=== PATIENT | female | born 1950 | race Caucasian/White ===

== ENCOUNTER → 2019-12-04 | Outpatient (CLI) | payer MEDICARE, BC ==
--- NOTE | 2019-12-04 16:32 | US ---
EXAMINATION TYPE: US thyroid st tissue head/neck DATE OF EXAM: 12/04/2019 COMPARISON: NONE CLINICAL HISTORY: E03.9 Hypothyroidism. Takes tyroid medication. GLAND SIZE: Right Lobe: 4.1 x 0.9 x 0.9 cm Overall Parenchyma: homogenous Left Lobe: 4.4 x 1.2 x 0.8 cm Overall Parenchyma: homogeneous Isthmus Thickness: 0.2 cm NODULES RIGHT: # of nodules measured on right: 0 LEFT: # of nodules measured on left: 1 1. 0.5 X 0.4 x 0.3 cm hypoechoic solid nodule at the lower pole with well-defined margins. This no dule is wider than tall and shows no intranodular vascularity. ISTHMUS: # of nodules measured in the isthmus: 0 Bilateral neck scanned: inferior to left lower pole is hyperechoic lymph node = 1.0 x 0.5 x 0.4cm. IMPRESSION: Subcentimeter left thyroid nodule. Shotty adenopathy within the left neck.
== END | disposition home or self-care (01) ==
LOC: RADUSWWP 15:29
PROVIDERS: ATTEND Family Medicine
DX: E04.1 Nontoxic single thyroid nodule (principal); R59.0 Localized enlarged lymph nodes; E03.9 Hypothyroidism, unspecified
CPT/HCPCS: 76536

== ENCOUNTER → 2020-02-29 | Outpatient (CLI) | payer MEDICARE, BC ==
--- NOTE | 2020-02-29 10:45 | US ---
EXAMINATION TYPE: US thyroid st tissue head/neck DATE OF EXAM: 02/29/2020 COMPARISON: 12/04/2019 CLINICAL HISTORY: 69-year-old female E07.9 Thyroid lobe. TECHNIQUE: Multiple sonographic images of the thyroid gland are obtained. FINDINGS: GLAND SIZE: Right Lobe: 4.1 x 0.8 x 0.9 cm Overall Parenchyma: homogenous Left Lobe: 4.3 x 1.6 x 0.7 cm Overall Parenchyma: homogeneous Isthmus Thickness: 0.2 cm NODULES RIGHT: # of nodules measured on right: 0 LEFT: # of nodules measured on left: 1 1. 0.6 X 0.5 x 0.3 cm hypoechoic nodule, which is wider than tall, with smooth margins, without ech ogenic foci. Located at the mid to lower pole. Prior size: 0.5 x 0.4 x 0.3 cm ISTHMUS: # of nodules measured in the isthmus: 0 Bilateral neck scanned: Prominent but nonenlarged lymph node seen inferior to left lobe = 1.0 x 0.5 x 0.4cm. This shows large fatty hilum with thin uniform cortex. IMPRESSION: Solitary solid nodule at the left mid to lower pole measures 6 x 5 mm versus 5 x 4 mm, previously. Ad ditional follow-up can be performed.
== END | disposition home or self-care (01) ==
LOC: RADUSWWP 09:37
PROVIDERS: ATTEND Otolaryngology
DX: E04.1 Nontoxic single thyroid nodule (principal)
CPT/HCPCS: 76536

== ENCOUNTER 2020-08-24 11:07 | Inpatient (IN) | payer MEDICARE, BC ==
[2020-08-25] MEDS ORDERED: NA PHOS,M-B/NA PHOS,DI-BA 133 ML ENEMA RECTAL PRN (14:38)
[2020-08-25] MEDS ORDERED: HYDROmorphone 0.5 MG/0.5 ML SYRINGE IVP PRN ×2 (14:38)
[2020-08-25] MEDS ORDERED: ACETAMINOPHEN TAB 325 MG TAB PO PRN (14:38)
[2020-08-25] MEDS ORDERED: TEMAZEPAM 15 MG CAP PO PRN (14:38)
[2020-08-25] MEDS ORDERED: diazePAM 5 MG TAB PO PRN (14:38)
[2020-08-25] MEDS ORDERED: bisacodyL 10 MG SUPP RECTAL PRN (14:38)
[2020-08-25] MEDS ORDERED: HYDROcodone/APAP 5-325MG 1 EACH TAB PO PRN (14:38)
[2020-08-25] MEDS ORDERED: ONDANSETRON 4 MG/2 ML VIAL IVP PRN (14:38)
[2020-08-25] MEDS ORDERED: Acetaminophen-Codeine 300-30mg TAB PO PRN (14:38)
[2020-08-25] MEDS ORDERED: NALOXONE 0.4 MG/ML 1 ML VIAL IV PRN (14:38)
[2020-08-25] MEDS ORDERED: MAGNESIUM HYDROXIDE 2,400 MG/10 ML CUP PO PRN (14:38)
[2020-08-25] MEDS ORDERED: HYDROmorphone 0.2 MG/1 ML SYRINGE IVP PRN (14:38)
[2020-08-25] MEDS: SODIUM CHLORIDE 0.9% 1,000 ML IV SCH (16:01)
[2020-08-25] MEDS: SENNOSIDES-DOCUSATE SODIUM 1 EACH TAB PO SCH (21:37)
[2020-08-25] MEDS: ALPRAZolam 0.25 MG TAB PO PRN (23:38)
[2020-08-26] MEDS: SODIUM CHLORIDE 0.9% 1,000 ML IV SCH ×3 (03:58→20:58)
[2020-08-26 07:23] LABS: Basophils % (A) 1 %; Eosinophils # (A) 0.1 k/uL (0-0.7); Eosinophils % (A) 2 %; HCT 35.8 % (34.0-46.0); HGB 12.2 gm/dL (11.4-16.0); Lymphocytes # (A) 1.1 k/uL (1.0-4.8); Lymphocytes % (A) 23 %; MCH 30.5 pg (25.0-35.0); MCV 89.7 fL (80.0-100.0); Mean Platelet Volume 7.2; Monocytes # (A) 0.3 k/uL (0-1.0); Monocytes % (A) 5 %; Neutrophils # (A) 3.2 k/uL (1.3-7.7); Neutrophils % (A) 68 %; Platelet Count 337 k/uL (150-450); RBC 3.99 m/uL (3.80-5.40); RDW 12.5 % (11.5-15.5); WBC 4.8 k/uL (3.8-10.6)
[2020-08-26] MEDS ORDERED: ALPRAZolam 0.25 MG TAB PO STA (08:01)
[2020-08-26] MEDS: THYROID, PORK 30 MG TAB PO SCH (08:41)
[2020-08-26] MEDS: MULTIVITAMINS, THERA 1 EACH TAB PO SCH (11:36)
[2020-08-26] MEDS ORDERED: LACTATED RINGERS 1,000 ML IV ONE ×2 (13:11→16:10)
[2020-08-26] MEDS ORDERED: ONDANSETRON 4 MG/2 ML VIAL IVP ONE (13:16)
[2020-08-26] MEDS ORDERED: MIDAZOLAM 2 MG/2 ML VIAL IVP ONE (13:32)
[2020-08-26] MEDS ORDERED: fentaNYL (PF) 50 MCG/ML 2 ML AMP IVP ONE ×2 (13:33→13:37)
--- NOTE | 2020-08-26 13:49 | P.ANPRN ---
Procedure Note - Anesthesia - Nerve Block Performed Right Adductor Canal Single Time Out Performed: Yes Date of Procedure: 08/26/20 Procedure Start Time: 13:31 Procedure Stop Time: 13:36 Location of Patient: PreOp Indication: Requested by Surgeon Specifically requested for management of pain by DrJohn: Kevin Rome Sedation Type: Sedate with meaningful contact maintained Preparation: Sterile Prep Position: Supine Needle Types: Pajunk Needle Gauge: 21 Ultrasound used to visualize needle placement: Yes Ultrasound used to observe medication spread: Yes Injectate: 0.5% Ropivacaine (see comment for volume) (20 ml plus 4 mg Dexamethasone) Blood Aspirated: No Pain Paresthesia on Injection Noted: No Resistance on Injection: Normal Image Stored and Saved: Yes Events: Uneventful and Well Tolerated
--- NOTE | 2020-08-26 13:51 | P.ANPRN ---
Procedure Note - Anesthesia - Nerve Block Performed Right Popliteal Single Time Out Performed: Yes Date of Procedure: 08/26/20 Procedure Start Time: 13:37 Procedure Stop Time: 13:43 Location of Patient: PreOp Indication: Requested by Surgeon ([email or web address]) Specifically requested for management of pain by Dr.: Kevin Rome Sedation Type: Sedate with meaningful contact maintained Preparation: Sterile Prep Position: Left Lateral Needle Types: Pajunk Needle Gauge: 21 Ultrasound used to visualize needle placement: Yes Ultrasound used to observe medication spread: Yes Injectate: 0.5% Ropivacaine (see comment for volume) (20 ml plus 4 mg Dexamethasone) Blood Aspirated: No Pain Paresthesia on Injection Noted: No Resistance on Injection: Normal Image Stored and Saved: Yes Events: Uneventful and Well Tolerated
[2020-08-26] MEDS ORDERED: HYDROmorphone (PF) 1 MG/ML ONE (14:06)
[2020-08-26] MEDS ORDERED: SUCCINYLCHOLINE CHLORIDE 100 MG/5 ML SYR IV ONE (14:06)
[2020-08-26] MEDS ORDERED: PROPOFOL 10 MG/ML 20 ML VIAL IV ONE (14:06)
[2020-08-26] MEDS ORDERED: LIDOCAINE 1% INJ 10MG/ML (20 ML MDV) ONE (14:06)
[2020-08-26] MEDS ORDERED: fentaNYL (PF) 50 MCG/ML 2 ML AMP ONE (14:06)
[2020-08-26] MEDS ORDERED: MIDAZOLAM 2 MG/2 ML VIAL ONE (14:06)
[2020-08-26] MEDS ORDERED: ROPIVACAINE 5 MG/ML 30 ML VIAL ONE (14:06)
[2020-08-26] MEDS ORDERED: DEXAMETHASONE SOD PHOSPHATE 4 MG/ML 1 ML VIAL ONE (14:06)
[2020-08-26] MEDS ORDERED: SODIUM CHLORIDE 0.9% 100 ML with ceFAZolin 2,000 MG IV ONE ×2 (14:11)
[2020-08-26] MEDS ORDERED: CLOTRIMAZOLE/BETAMETH 1-0.05% CREAM 45 GM TUBE TOPICAL PRN (16:19)
[2020-08-26] MEDS ORDERED: NON FORMULARY DRUG (Pimecrolimus [Pimecrolimus] 30 GM Cream..G.) TOPICAL PRN (16:19)
[2020-08-26] MEDS ORDERED: BETAMETHASONE DIPROPIONATE 0.05% OINTMENT 45 GM TUBE TOPICAL PRN (16:19)
[2020-08-26] MEDS ORDERED: NYSTATIN 100,000UNIT/GM CREAM 30 GM TUBE TOPICAL PRN (16:19)
[2020-08-26] MEDS ORDERED: IPRATROPIUM BROMIDE 0.06% NASAL SPRAY (15 ML) EA NOSTRIL PRN (16:19)
[2020-08-26] MEDS ORDERED: CLOTRIMAZOLE 1% CREAM 30 GM TUBE TOPICAL PRN (16:19)
[2020-08-26] MEDS ORDERED: TRIAMCINOLONE 0.1% CREAM 80 GM TUBE TOPICAL PRN (16:19)
--- NOTE | 2020-08-26 16:21 | FL ---
Fluoroscopy HISTORY: Pain ankle fracture 61 seconds fluoroscopy time supplied to the referring clinician. 2 intraoperative C-arm images docum ent the procedure. See dictated report from orthopedic surgery.
--- NOTE | 2020-08-26 16:38 | P.CONS ---
History of Present Illness - Reason for Consult Consult date: 08/26/20 - Chief Complaint medical management - History of Present Illness 69 year old woman with history of HLD, hypothyroidism, anxiety/depression, CKD III presented for elective ORIF of b/l malleolar ankle fractures. Medicine consulted by ortho for med management. Preoperative clearance obtained from patient's PCP. Patient has no active complaints at this time outside of several chronic medical issues. She reports anxiety this morning and would like her xanax. She also reports rash on her chest. Otherwise denies chest pain, palps, f/c, n/v/c/d, abd pain, cough, dyspnea, numbness/weakness. Review of Systems All Systems reviewed and pertinent positives and negatives noted in HPI, all other symptoms are negative Past Medical History Past Medical History: Cancer, Eye Disorder, GERD/Reflux, Hyperlipidemia, Skin Disorder, Thyroid Disorder Additional Past Medical History / Comment(s): fell down 3 steps 08/13/20 fx both ankles-has boots on both feet and has burn rash on rt arm,currently on bedrest, hx migraines, "heart valve leak", hiatal hernia, osteopenia, stage III kidney disease, thyroid nodule, melanoma rt ear, rash on chest, narrow angle glaucoma History of Any Multi-Drug Resistant Organisms: None Reported Past Surgical History: Ear Surgery, Hysterectomy, Tonsillectomy Additional Past Surgical History / Comment(s): rt ear reconstruction after melanoma removed, rosalia cataracts, lesion removed from base on tongue, laser eye surgery, mult breast biopsies, right tonsil taking out Past Anesthesia/Blood Transfusion Reactions: No Reported Reaction Additional Past Anesthesia/Blood Transfusion Reaction / Comm: claustrophobia Past Psychological History: Anxiety, Depression Additional Psychological History / Comment(s): claustrophobia, past depressions Smoking Status: Former smoker Past Alcohol Use History: None Reported Additional Past Alcohol Use History / Comment(s): quit smoking 10 yrs ago, smoked since age late teens Past Drug Use History: None Reported - Past Family History Father Family Medical History: Cancer Additional Family Medical History / Comment(s): colon Medications and Allergies Home Medications Medication Instructions Recorded Confirmed Type ALPRAZolam [Xanax] 0.375 - 0.5 mg PO DAILY PRN 08/18/20 08/25/20 History Aspirin EC [Ecotrin Low Dose] 81 mg PO DAILY 08/18/20 08/25/20 History Atorvastatin Calcium [Lipitor] 10 mg PO Q48H 08/18/20 08/25/20 History Atorvastatin [Lipitor] 20 mg PO Q48H 08/18/20 08/25/20 History Betamethasone Dipropionate 1 applic TOPICAL DAILY PRN 08/18/20 08/25/20 History [Betamethasone Dipropionate 0.05%] Biotin Tab 2,000 mg PO DAILY 08/18/20 08/25/20 History Cholecalciferol [Vitamin D3 (25 25 mcg PO SUMOTUWE 08/18/20 08/25/20 History Mcg = 1000 Iu)] Citalopram Hydrobromide [CeleXA] 15 mg PO DAILY 08/18/20 08/25/20 History Citrucel Tablet 1 tab PO DAILY 08/18/20 08/25/20 History Clotrimazole Cream [Lotrimin Cream] 1 applic TOPICAL DAILY PRN 08/18/20 08/25/20 History Clotrimazole/Betameth Cream 1 applic TOPICAL DAILY PRN 08/18/20 08/25/20 History [Lotrisone] Escitalopram [Lexapro] 5 mg PO DAILY 08/18/20 08/25/20 History Escitalopram [Lexapro] 10 mg PO DAILY 08/18/20 08/25/20 History Magnesium Oxide [Mag-Ox] 400 mg PO Q48H 08/18/20 08/25/20 History Pimecrolimus 1 applic TOPICAL BID PRN 08/18/20 08/25/20 History Thyroid, Pork [Milton Thyroid] 30 mg PO Q48H 08/18/20 08/25/20 History Thyroid,Pork [Milton Thyroid] 45 mg PO Q48H 08/18/20 08/25/20 History Thyroid,Pork [Milton Thyroid] 90 mg PO TU 08/18/20 08/25/20 History Vitamin B Complex 1 cap PO DAILY 08/18/20 08/25/20 History buPROPion HCL [buPROPion HCL SR] 150 mg PO DAILY 08/18/20 08/25/20 History calcitrioL [Calcitriol] 0.25 mcg PO SENA 08/18/20 08/25/20 History Acyclovir 5% Oint [Zovirax Oint] 1 applic TOPICAL QID 08/24/20 08/25/20 History Chlorhexidine Gluconate [Peridex] 15 ml PO BID PRN 08/24/20 08/25/20 History Cn-U Fungal Nail Removal Gel 1 dose TOPICAL MOTUWETH 08/24/20 08/25/20 History Ipratropium Badger 0.06%Nasal 2 spray EA NOSTRIL TID PRN 08/24/20 08/25/20 History [Atrovent Nasal 0.06%] Nystatin 100,000Unit/gm Cream 1 applic TOPICAL DAILY PRN 08/25/20 08/25/20 History [Mycostatin Cream] Triamcinolone 0.1% Cream [Kenalog 1 applicatio TOPICAL DAILY PRN 08/25/20 08/25/20 History 0.1% Cream] Allergies Allergy/AdvReac Type Severity Reaction Status Date / Time adhesive Allergy blisters Verified 08/25/20 13:30 skin and rips skin amoxicillin Allergy Rash/Hives Verified 08/25/20 13:30 diphenhydramine Allergy Rash/Hives Verified 08/25/20 13:30 [From Benadryl] Iodinated Contrast Media Allergy told not Verified 08/25/20 13:30 to take by her Penicillins Allergy Rash/Hives Verified 08/25/20 13:30 bandaid glue Allergy Rash/Hives Uncoded 08/18/20 10:15 steroids Allergy Rash/Hives Uncoded 08/18/20 10:15 Physical Exam Osteopathic Statement: *. No significant issues noted on an osteopathic structural exam other than those noted in the History and Physical/Consult. Vitals: Vital Signs Temp Pulse Resp BP Pulse Ox 08/26/20 13:46 78 18 121/65 98 08/26/20 13:10 97.8 F 78 18 135/71 98 08/26/20 08:00 20 08/26/20 07:27 97.8 F 81 20 115/74 95 08/26/20 01:38 98.2 F 65 18 102/59 94 L 08/26/20 01:30 97.6 F 83 16 121/72 95 08/25/20 20:30 98.4 F 69 16 129/49 93 L Intake and Output 08/26/20 08/26/20 08/26/20 06:59 14:59 22:59 Intake Total 1100 Balance 1100 Intake: IV 1100 Other: # Voids 2 2 Gen: awake, alert HEENT: normocephalic, atraumatic, good hearing acuity, moist mucous membranes Resp: good air exchange, breathing comfortably with no accessory muscle use CVS: good distal perfusion x 4, GI: soft, NTTP, ND : no SPT, no CVAT, suarez catheter not present MSK: no pitting edema, no clubbing Neuro: non-focal, moving all extremities Psych: cooperative, euthymic mood Results CBC & Chem 7: 08/26/20 06:50 Assessment and Plan Assessment: Hyperlipidemia Mood disorder Rash Hypothyroidism CKD stage III Plan Patient's medication reconciliation was completed from the medical perspective. Chronic medical conditions are all stable. We will continue to monitor the patient daily and follow along with you. Recommend CBC, BMP, magnesium tomorrow morning to follow blood count and kidney function after operation
--- NOTE | 2020-08-26 16:55 | P.OP ---
Date of Procedure: 08/26/20 Preoperative Diagnosis: 1. Displaced lateral malleolar fracture right ankle 2. Displaced fracture weightbearing surface of right distal tibia. 3. Ruptured syndesmosis right ankle Postoperative Diagnosis: 1. Displaced right lateral malleolar fracture 2. Displaced fracture weightbearing surface right distal tibia Procedure(s) Performed: 1. Open reduction with internal fixation of fracture of weightbearing surface of right distal tibia 2. Open reduction with internal fixation of displaced right lateral malleolar fracture Implants: Company: [employer] Posterior lateral fibula plate Posterior lateral tibial plate 3.5 mm locking and nonlocking screws 2.7 mm locking screws Anesthesia: CHARLAA Surgeon: Kevin Rome Estimated Blood Loss (ml): 25 Pathology: none sent Condition: stable Disposition: PACU Indications for Procedure: Patient suffered a fall on stairs that resulted in a displaced fracture of the lateral malleolus and posterior malleolus of the right tibia. Was evidence of medial joint space widening on initial x-rays. Due to the instability of the fracture surgery was recommended Operative Findings: The posterior tibia and lateral malleolar fractures reduced well with fixation. Once the fractures were fixated stress on the ankle revealed that there was no disruption of the syndesmosis therefore fixation was not needed Description of Procedure: Prior to the patient being brought to the operating room anesthesia administered nerve block on the right lower extremity utilizing ultrasonic guidance and mild sedation. The patient was then brought into the operating room. Timeout was taken to confirm correct patient identifiers, correct procedure, and correct site of surgery. When the room was in agreement the patient was induced and placed under general anesthetic. The patient was then rolled onto the operating room table in the prone position. Once positioning was satisfactory to anesthesia, well-padded tourniquet was placed on the right thigh. Then the right leg was prepped and draped in the usual manner. The right leg was exsanguinated the knee flexed and the tourniquet inflated to 250 mmHg. Joint was directed to the posterior lateral aspect of the right ankle where an incision was made between the Achilles tendon and peroneal tendons. The incision was deepened down to the subcutaneous layer careful to identify, avoid, and retract any neurovascular structures and cauterize any bleeding vessels. Blunt dissection was performed until the fascia overlying the flexor hallucis longus muscle belly and the peroneal tendon muscle bellies was ordered. The natural division between the 2 muscle structures was utilized as another point of dissection with the muscles are and then retracted medially and laterally to expose the posterior surface of the tibia. Further dissection was done with the peroneal tendons where there were reflected off the posterior aspect of the lateral malleolus and a full-thickness layer and retracted. Under fluoroscopic visualization the lateral view of the ankle showed that the posterior malleolar fracture was nearly anatomically reduced compared to preoperative x-rays. Direct visualization and the posterior aspect of the tibia did not reveal a step-off or an obvious fracture line. Hurricane elevator was used to find the outline of the fracture in the area palpated and it appeared that there was complete normal contour the fracture line. The clamp was used to reduce the fracture and then a posterior lateral plate was placed over the fracture along the long axis of the tibia. And then temporarily fixated and checked under fluoroscopy for positioning. Once position was satisfactory a nonlocking screw was placed in the proximal holes of the plate or to the fracture and then tightened until the plate was well contoured to the posterior aspect of the tibia which also aided a repeat keeping the fracture reduced. The clamp was removed and then 2 locking screws were placed in the most distal holes and there were angulated away to avoid the articular surface of the ankle. The last was another nonlocking screw in the proximal holes once all screws were placed fluoroscopic imaging showed that the posterior malleolar fracture was completely reduced and all the screws were properly placed. Then attention was directed to the lateral malleolus with the fracture line was identified and then bone clamps were used to bring the fibula back out to length and then stabilize it in place. A posterior lateral plate was then positioned on the fibula and then temporarily fixated. Fluoroscopy was used to make sure that the plate was well aligned both on AP and lateral views. Once that was satisfactory was temporarily fixated. Fluoroscopy was used to make sure that was in its final position. The drill guide was affixed to the distal part of the plate the drill holes made from posterior to anterior in the distal aspect lateral malleolus. Direct fluoroscopic visualization was utilized to complete the drilling as well as confirmed proper measurements. 2.7 locking screws were inserted into the distal drill holes. The drill hole in the proximal screw which was also superior to the fracture was made and a 3.5 mm nonlocking screw was inserted and tightened to bring the plate against the bone and 8 and fracture reduction. Fluoroscopic imaging showed that the fracture was near anatomic alignment with proper placement of the plate. 2 additional 3.5 mm nonlocking screws were inserted into the fibula superior to the fracture. Once all fixation was in place final fluoroscopic imaging was done both in AP and lateral views. All fractures were well reduced. And then under live fluoroscopy the ankle was stressed with eversion stress place and ankle and then external rotation to assess any gapping in the syndesmosis. There was no evidence of gapping of the syndesmosis or widening of the medial joint space of the ankle. It was determined that the syndesmosis was likely not ruptured and the gapping was more of a result of the large posterior malleolar fracture where the posterior inferior tib-fib ligament attaches and was likely unstable and contributing to the parents widening. The wound is then irrigated thoroughly with antibiotic saline. Deep closure was done with 2-0 Vicryl. Subcutaneous closure done with 4-0 Monocryl. Skin closure done with brittny. An Arthrex jumpstart dressing was placed over the incision then a bulky dry dressing applied to the right ankle. The tourniquet was released and capillary refill return to all digits on the right foot. The patient was then placed in a well-padded, well molded plaster posterior mold/sugar tong splint. Ankle was held in neutral position as the splint dried. The patient was then placed back on her bed in the supine position at which point anesthesia was reversed and she was extubated not dramatically. She tolerated the above procedure and anesthesia well which recovery with vital signs stable.
[2020-08-26] MEDS ORDERED: ALBUTEROL NEBULIZED 2.5 MG/3 ML INHALATION ONE (17:07)
[2020-08-26] MEDS ORDERED: ACYCLOVIR 5% TOPICAL SCH (18:00)
[2020-08-26] MEDS ORDERED: LORazepam 2 MG/ML INJ IV PRN (18:16)
[2020-08-26] MEDS: SENNOSIDES-DOCUSATE SODIUM 1 EACH TAB PO SCH (18:53)
[2020-08-26] MEDS: ATORVASTATIN 20 MG TAB PO SCH (20:46)
[2020-08-27 08:42] LABS: Basophils % (A) 0 %; Eosinophils # (A) 0.1 k/uL (0-0.7); Eosinophils % (A) 1 %; HCT 34.5 % (34.0-46.0); HGB 11.6 gm/dL (11.4-16.0); Lymphocytes # (A) 0.5 k/uL (1.0-4.8); Lymphocytes % (A) 6 %; MCH 30.7 pg (25.0-35.0); MCHC 33.6 g/dL (31.0-37.0); MCV 91.3 fL (80.0-100.0); Mean Platelet Volume 7.4; Monocytes # (A) 0.3 k/uL (0-1.0); Monocytes % (A) 4 %; Neutrophils # (A) 7.7 k/uL (1.3-7.7); Neutrophils % (A) 89 %; Platelet Count 316 k/uL (150-450); RBC 3.77 m/uL (3.80-5.40); RDW 12.5 % (11.5-15.5); WBC 8.6 k/uL (3.8-10.6)
[2020-08-27 08:55] LABS: African American GFR (CKD) 85 (>60 ml/min/1.73 sqM); Anion Gap 5 mmol/L; Blood Urea Nitrogen 15 mg/dL (7-17); Carbon Dioxide 27 mmol/L (22-30); Chloride 107 mmol/L (98-107); Glucose 142 mg/dL (74-99); Magnesium 1.8 mg/dL (1.6-2.3); Non-African American GFR(CKD) 74 (>60 ml/min/1.73 sqM); Potassium 4.1 mmol/L (3.5-5.1); Sodium 139 mmol/L (137-145)
[2020-08-27] MEDS ORDERED: NON FORMULARY DRUG (Vitamin B Complex [Vitamin B Complex] 1 EACH Capsule) PO SCH (09:00)
[2020-08-27] MEDS ORDERED: ESCITALOPRAM 20 MG TAB PO SCH (09:00)
[2020-08-27] MEDS ORDERED: BIOTIN PO SCH (09:00)
[2020-08-27] MEDS: ESCITALOPRAM 5 MG TAB PO SCH (09:05)
[2020-08-27] MEDS: buPROPion SR 150 MG TABLET.ER PO SCH (09:05)
[2020-08-27] MEDS: CALCIUM CARB-VIT D 500 MG-5 MCG TAB PO SCH (09:06)
[2020-08-27] MEDS: CITALOPRAM HYDROBROMIDE 10 MG TAB PO SCH (09:06)
[2020-08-27] MEDS: MAGNESIUM OXIDE 400 MG TAB PO SCH (09:06)
[2020-08-27] MEDS: THYROID, PORK 30 MG TAB PO SCH (09:08)
[2020-08-27] MEDS: ALPRAZolam 0.25 MG TAB PO PRN (09:56)
[2020-08-27] MEDS: ASPIRIN 81 MG PO SCH ×3 (11:08→21:33)
[2020-08-27] MEDS: MULTIVITAMINS, THERA 1 EACH TAB PO SCH (11:08)
[2020-08-27] MEDS: HYDROcodone/APAP 10-325MG 1 EACH TAB PO PRN ×2 (11:12→17:16)
--- NOTE | 2020-08-27 11:32 | P.PN ---
Subjective Progress Note Date: 08/27/20 Principal diagnosis: S/P ORIF right ankle fracture Patient is seen at bedside this morning. She is postop day #1 from ORIF of right ankle fracture. She has pain at the surgical site as expected but denies any new complaints. She denies numbness, tingling or calf pain. Review of systems is negative for fever, chills, chest pain, shortness of breath or other Objective - Vital Signs Vital signs: Vital Signs Temp 98.0 F 08/27/20 07:00 Pulse 76 08/27/20 07:00 Resp 17 08/27/20 07:00 BP 100/60 08/27/20 07:00 Pulse Ox 99 08/27/20 07:00 Intake & Output 08/26/20 08/27/20 08/27/20 18:59 06:59 18:59 Intake Total 1200 Output Total 410 Balance 790 Intake: IV 1200 Output: Urine 400 Estimated Blood Loss 10 Other: Voiding Method Bedpan Bedpan # Voids 2 2 - Exam Inspection reveals a benign dressing and well padded and fitted splint in place. There is no active bleeding or drainage. Neurovascular status is intact throughout the lower extremity with motor and sensation intact. Calf is soft and nontender. She is able to wiggle all toes and less than 2 second cap refill is present. - Constitutional General appearance: Present: no acute distress - Labs CBC & Chem 7: 08/27/20 08:18 08/27/20 08:18 Labs: Abnormal Lab Results - Last 24 Hours (Table) 08/27/20 08/27/20 Range/Units 08:18 08:18 RBC 3.77 L (3.80-5.40) m/uL Lymphocytes # 0.5 L (1.0-4.8) k/uL Glucose 142 H (74-99) mg/dL Assessment and Plan (1) Closed right ankle fracture Narrative/Plan: She will continue with routine postop orthopedic protocol including pain management, wound care, PT, DVT prophylaxis and medical management. Expect that she will transfer to [facility] in 1-2 days Current Visit: Yes Status: Acute Priority: Medium Code(s): S82.891A - OTH FRACTURE OF RIGHT LOWER LEG, INIT FOR CLOS FX SNOMED Code(s): 72261517 Time with Patient: Less than 30
[2020-08-27] MEDS: SODIUM CHLORIDE 0.9% 1,000 ML IV SCH ×2 (11:34→15:35)
--- NOTE | 2020-08-27 13:29 | P.PN ---
Subjective Progress Note Date: 08/27/20 No new complaints today. Recovering well post-op. Pending Rehab. Objective - Vital Signs Vital signs: Vital Signs Temp 98.5 F 08/27/20 11:00 Pulse 69 08/27/20 11:00 Resp 16 08/27/20 11:00 BP 107/65 08/27/20 11:00 Pulse Ox 96 08/27/20 11:00 Intake & Output 08/26/20 08/27/20 08/27/20 18:59 06:59 18:59 Intake Total 1200 Output Total 410 Balance 790 Intake: IV 1200 Output: Urine 400 Estimated Blood Loss 10 Other: Voiding Method Bedpan Bedpan # Voids 2 2 1 - Exam Gen: awake, alert HEENT: normocephalic, atraumatic, good hearing acuity, moist mucous membranes Resp: good air exchange, breathing comfortably with no accessory muscle use CVS: good distal perfusion x 4, GI: soft, NTTP, ND : no SPT, no CVAT, suarez catheter not present MSK: no pitting edema, no clubbing Neuro: non-focal, moving all extremities Psych: cooperative, euthymic mood - Labs CBC & Chem 7: 08/27/20 08:18 08/27/20 08:18 Labs: Abnormal Lab Results - Last 24 Hours (Table) 08/27/20 08/27/20 Range/Units 08:18 08:18 RBC 3.77 L (3.80-5.40) m/uL Lymphocytes # 0.5 L (1.0-4.8) k/uL Glucose 142 H (74-99) mg/dL Assessment and Plan Assessment: Hyperlipidemia Mood disorder Rash Hypothyroidism CKD stage III Plan Patient's medication reconciliation was completed from the medical perspective. Chronic medical conditions are all stable. We will continue to monitor the patient daily and follow along with you. Recommend CBC, BMP, magnesium tomorrow morning to follow blood count and kidney function after operation
[2020-08-27] MEDS ORDERED: ATORVASTATIN 10 MG TAB PO SCH (21:00)
[2020-08-27] MEDS: SENNOSIDES-DOCUSATE SODIUM 1 EACH TAB PO SCH ×2 (21:33→21:35)
[2020-08-28] MEDS: SODIUM CHLORIDE 0.9% 1,000 ML IV SCH ×2 (00:52→15:45)
[2020-08-28 06:39] LABS: Basophils % (A) 0 %; Eosinophils # (A) 0.1 k/uL (0-0.7); Eosinophils % (A) 1 %; HCT 36.6 % (34.0-46.0); HGB 12.4 gm/dL (11.4-16.0); Lymphocytes # (A) 1.6 k/uL (1.0-4.8); Lymphocytes % (A) 24 %; MCH 30.9 pg (25.0-35.0); MCHC 33.8 g/dL (31.0-37.0); MCV 91.3 fL (80.0-100.0); Mean Platelet Volume 7.2; Monocytes # (A) 0.3 k/uL (0-1.0); Monocytes % (A) 5 %; Neutrophils # (A) 4.7 k/uL (1.3-7.7); Neutrophils % (A) 69 %; Platelet Count 318 k/uL (150-450); RDW 12.8 % (11.5-15.5); WBC 6.8 k/uL (3.8-10.6)
[2020-08-28] MEDS: THYROID, PORK 30 MG TAB PO SCH (07:25)
[2020-08-28] MEDS: ASPIRIN 81 MG PO SCH ×2 (09:58→21:29)
[2020-08-28] MEDS: CHOLECALCIFEROL 25 MCG (1000 IU) TABLET PO SCH (09:58)
[2020-08-28] MEDS: CALCIUM CARB-VIT D 500 MG-5 MCG TAB PO SCH (10:00)
[2020-08-28] MEDS: CITALOPRAM HYDROBROMIDE 10 MG TAB PO SCH (10:00)
[2020-08-28] MEDS: buPROPion SR 150 MG TABLET.ER PO SCH (10:00)
[2020-08-28] MEDS: ESCITALOPRAM 5 MG TAB PO SCH (10:00)
[2020-08-28] MEDS: ALPRAZolam 0.25 MG TAB PO PRN (10:05)
[2020-08-28] MEDS: MULTIVITAMINS, THERA 1 EACH TAB PO SCH (11:50)
--- NOTE | 2020-08-28 12:12 | P.PN ---
Subjective Progress Note Date: 08/28/20 Principal diagnosis: S/P ORIF right ankle fracture Patient is seen at bedside this morning. She is postop day #2 from ORIF of right ankle fracture. She has pain at the surgical site as expected but denies any new complaints. She denies numbness, tingling or calf pain. Review of systems is negative for fever, chills, chest pain, shortness of breath or other Objective - Vital Signs Vital signs: Vital Signs Temp 98.7 F 08/28/20 06:59 Pulse 60 08/28/20 06:59 Resp 16 08/28/20 06:59 BP 113/64 08/28/20 06:59 Pulse Ox 95 08/28/20 06:59 Intake & Output 08/27/20 08/28/20 08/28/20 18:59 06:59 18:59 Output Total 1 Balance -1 Output: Urine 1 Other: Voiding Method Bedpan Bedpan Bedpan # Voids 3 7 2 - Exam Inspection reveals a benign dressing. well padded and fitted splint in place. There is no active bleeding or drainage. Neurovascular status is intact throughout the lower extremity with motor and sensation intact. Calf is soft and nontender. She is able to wiggle all toes and less than 2 second cap refill is present. - Constitutional General appearance: Present: no acute distress - Labs CBC & Chem 7: 08/28/20 06:11 08/27/20 08:18 Assessment and Plan (1) Closed right ankle fracture Narrative/Plan: She will continue with routine postop orthopedic protocol including pain management, wound care, PT, DVT prophylaxis and medical management. Expect that she will transfer to [facility] tomorrow. Saturday. Current Visit: Yes Status: Acute Priority: Medium Code(s): S82.891A - OTH FRACTURE OF RIGHT LOWER LEG, INIT FOR CLOS FX SNOMED Code(s): 69945455 Time with Patient: Less than 30
--- NOTE | 2020-08-28 12:34 | P.PN ---
Subjective Progress Note Date: 08/28/20 No new complaints today, pending long term facility placement for rehab Objective - Vital Signs Vital signs: Vital Signs Temp 98.7 F 08/28/20 06:59 Pulse 60 08/28/20 06:59 Resp 16 08/28/20 06:59 BP 113/64 08/28/20 06:59 Pulse Ox 95 08/28/20 06:59 Intake & Output 08/27/20 08/28/20 08/28/20 18:59 06:59 18:59 Output Total 1 Balance -1 Output: Urine 1 Other: Voiding Method Bedpan Bedpan Bedpan # Voids 3 7 1 - Exam Gen: awake, alert HEENT: normocephalic, atraumatic, good hearing acuity, moist mucous membranes Resp: good air exchange, breathing comfortably with no accessory muscle use CVS: good distal perfusion x 4, GI: soft, NTTP, ND : no SPT, no CVAT, suarez catheter not present MSK: no pitting edema, no clubbing Neuro: non-focal, moving all extremities Psych: cooperative, euthymic mood - Labs CBC & Chem 7: 08/28/20 06:11 08/27/20 08:18 Assessment and Plan Assessment: Hyperlipidemia Mood disorder Rash Hypothyroidism CKD stage III Plan Patient's medication reconciliation was completed from the medical perspective. Chronic medical conditions are all stable. We will continue to monitor the patient daily and follow along with you. Patient is stable for discharge upon placement to rehab
[2020-08-28] MEDS: SENNOSIDES-DOCUSATE SODIUM 1 EACH TAB PO SCH (21:28)
[2020-08-28] MEDS: ATORVASTATIN 20 MG TAB PO SCH (21:29)
[2020-08-28] MEDS: HYDROcodone/APAP 10-325MG 1 EACH TAB PO PRN (21:33)
[2020-08-29] MEDS: SODIUM CHLORIDE 0.9% 1,000 ML IV SCH ×3 (00:02→12:42)
[2020-08-29] MEDS: ESCITALOPRAM 5 MG TAB PO SCH (09:38)
[2020-08-29] MEDS: ASPIRIN 81 MG PO SCH (09:39)
[2020-08-29] MEDS: MULTIVITAMINS, THERA 1 EACH TAB PO SCH (09:39)
[2020-08-29] MEDS: THYROID, PORK 30 MG TAB PO SCH (09:39)
[2020-08-29] MEDS: MAGNESIUM OXIDE 400 MG TAB PO SCH (09:39)
[2020-08-29] MEDS: buPROPion SR 150 MG TABLET.ER PO SCH (09:39)
[2020-08-29] MEDS: CITALOPRAM HYDROBROMIDE 10 MG TAB PO SCH (09:39)
[2020-08-29] MEDS: CALCIUM CARB-VIT D 500 MG-5 MCG TAB PO SCH (09:40)
[2020-08-29] MEDS: CHOLECALCIFEROL 25 MCG (1000 IU) TABLET PO SCH (09:42)
[2020-08-29] MEDS: ALPRAZolam 0.25 MG TAB PO PRN (09:46)
--- NOTE | 2020-08-29 10:04 | P.DS ---
Providers Date of admission: 08/25/20 11:27 Expected date of discharge: 08/29/20 Attending physician: Kevin Rome DPM Consults: 08/25/20 14:38 Consult Physician Routine Consulting Provider: Dann Fuentes Consult Reason/Comments: pre op clearance and post op medical management Do you want consulting provider notified?: Yes Primary care physician: Umm Daniel - Discharge Diagnosis(es) (1) Closed right ankle fracture Patient was admitted to the OR on 08/26/20 to undergo ORIF of right ankle fracture. She had failed conservative measures as an outpatient and desired to proceed with elective surgery after given informed consent. She underwent the above procedure which she tolerated well without complication. Postoperative hospital course has remained without complication. On day of discharge she is afebrile, vital signs stable, labs within acceptable ranges, tolerating by mouth meds and diet, voiding without difficulty, positive flatus, denies abdominal pain or calf pain, pain is controlled on oral pain medication and has no new complaints. Wound is benign, neurovascular status is intact, calf is soft and nontender, abdomen soft and nontender. Review of systems is negative for numbness, tingling, fever, chills, chest pain, shortness of breath, nausea, vomiting, dizziness, headaches, slurred speech or other. Current Visit: Yes Status: Acute Priority: Medium Procedures: ORIF right ankle Patient Condition at Discharge: Good Plan - Discharge Summary Discharge Rx Participant: No New Discharge Prescriptions: New Docusate [Colace] 100 mg PO BID #60 capsule HYDROcodone/APAP 5-325MG [Counselor 5-325] 1 tab PO Q4HR PRN #42 tab PRN Reason: Pain Aspirin [Adult Low Dose Aspirin EC] 81 mg PO BID #60 tablet. No Action Aspirin EC [Ecotrin Low Dose] 81 mg PO DAILY ALPRAZolam [Xanax] 0.375 - 0.5 mg PO DAILY PRN PRN Reason: Anxiety buPROPion HCL [buPROPion HCL SR] 150 mg PO DAILY Escitalopram [Lexapro] 5 mg PO DAILY Escitalopram [Lexapro] 10 mg PO DAILY Thyroid,Pork [[place] Thyroid] 45 mg PO Q48H Atorvastatin [Lipitor] 20 mg PO Q48H Atorvastatin Calcium [Lipitor] 10 mg PO Q48H Citrucel Tablet 1 tab PO DAILY Clotrimazole/Betameth Cream [Lotrisone] 1 applic TOPICAL DAILY PRN PRN Reason: Rash Clotrimazole Cream [Lotrimin Cream] 1 applic TOPICAL DAILY PRN PRN Reason: Rash Pimecrolimus 1 applic TOPICAL BID PRN PRN Reason: Rash Thyroid, Pork [[place] Thyroid] 30 mg PO Q48H Ipratropium [place] 0.06%Nasal [Atrovent Nasal 0.06%] 2 spray EA NOSTRIL TID PRN PRN Reason: post nasal drip Triamcinolone 0.1% Cream [Kenalog 0.1% Cream] 1 applicatio TOPICAL DAILY PRN PRN Reason: Rash Vitamin B Complex 1 cap PO DAILY Cholecalciferol [Vitamin D3 (25 Mcg = 1000 Iu)] 25 mcg PO SUMOTUWE Magnesium Oxide [Mag-Ox] 400 mg PO Q48H Citalopram Hydrobromide [CeleXA] 15 mg PO DAILY Thyroid,Pork [[place] Thyroid] 90 mg PO TU calcitrioL [Calcitriol] 0.25 mcg PO SENA Biotin Tab 2,000 mg PO DAILY Betamethasone Dipropionate [Betamethasone Dipropionate 0.05%] 1 applic TOPICAL DAILY PRN PRN Reason: Rash Chlorhexidine Gluconate [Peridex] 15 ml PO BID PRN PRN Reason: MOUTH SORES Acyclovir 5% Oint [Zovirax Oint] 1 applic TOPICAL QID Cn-U Fungal Nail Removal Gel 1 dose TOPICAL MOTUWETH Nystatin 100,000Unit/gm Cream [Mycostatin Cream] 1 applic TOPICAL DAILY PRN PRN Reason: YEAST UNDER BREAST Discharge Medication List ALPRAZolam [Xanax] 0.375 - 0.5 mg PO DAILY PRN 08/18/20 [History] Aspirin EC [Ecotrin Low Dose] 81 mg PO DAILY 08/18/20 [History] Atorvastatin Calcium [Lipitor] 10 mg PO Q48H 08/18/20 [History] Atorvastatin [Lipitor] 20 mg PO Q48H 08/18/20 [History] Betamethasone Dipropionate [Betamethasone Dipropionate 0.05%] 1 applic TOPICAL DAILY PRN 08/18/20 [History] Biotin Tab 2,000 mg PO DAILY 08/18/20 [History] Cholecalciferol [Vitamin D3 (25 Mcg = 1000 Iu)] 25 mcg PO SUMOTUWE 08/18/20 [History] Citalopram Hydrobromide [CeleXA] 15 mg PO DAILY 08/18/20 [History] Citrucel Tablet 1 tab PO DAILY 08/18/20 [History] Clotrimazole Cream [Lotrimin Cream] 1 applic TOPICAL DAILY PRN 08/18/20 [History] Clotrimazole/Betameth Cream [Lotrisone] 1 applic TOPICAL DAILY PRN 08/18/20 [History] Escitalopram [Lexapro] 5 mg PO DAILY 08/18/20 [History] Escitalopram [Lexapro] 10 mg PO DAILY 08/18/20 [History] Magnesium Oxide [Mag-Ox] 400 mg PO Q48H 08/18/20 [History] Pimecrolimus 1 applic TOPICAL BID PRN 08/18/20 [History] Thyroid, Pork [[place] Thyroid] 30 mg PO Q48H 08/18/20 [History] Thyroid,Pork [[place] Thyroid] 45 mg PO Q48H 08/18/20 [History] Thyroid,Pork [[place] Thyroid] 90 mg PO TU 08/18/20 [History] Vitamin B Complex 1 cap PO DAILY 08/18/20 [History] buPROPion HCL [buPROPion HCL SR] 150 mg PO DAILY 08/18/20 [History] calcitrioL [Calcitriol] 0.25 mcg PO SENA 08/18/20 [History] Acyclovir 5% Oint [Zovirax Oint] 1 applic TOPICAL QID 08/24/20 [History] Chlorhexidine Gluconate [Peridex] 15 ml PO BID PRN 08/24/20 [History] Cn-U Fungal Nail Removal Gel 1 dose TOPICAL MOTUWETH 08/24/20 [History] Ipratropium [place] 0.06%Nasal [Atrovent Nasal 0.06%] 2 spray EA NOSTRIL TID PRN 08/24/20 [History] Nystatin 100,000Unit/gm Cream [Mycostatin Cream] 1 applic TOPICAL DAILY PRN 08/25/20 [History] Triamcinolone 0.1% Cream [Kenalog 0.1% Cream] 1 applicatio TOPICAL DAILY PRN 08/25/20 [History] Aspirin [Adult Low Dose Aspirin EC] 81 mg PO BID #60 tablet. 08/29/20 [Rx] Docusate [Colace] 100 mg PO BID #60 capsule 08/29/20 [Rx] HYDROcodone/APAP 5-325MG [Counselor 5-325] 1 tab PO Q4HR PRN #42 tab 08/29/20 [Rx] Follow up Appointment(s)/Referral(s): Kevin Rome DPM [Doctor of Osteopathic Medicine] - 2 Weeks Activity/Diet/Wound Care/Special Instructions: Nonweightbearing operative leg elevate and ice maintain splint, keep clean and dry take meds as directed F/U with Dr. Rome in office Discharge Disposition: TRANSFER TO SNF/ECF
[2020-08-29] MEDS ORDERED: ALPRAZolam 0.25 MG TAB PO STA (12:28)
[2020-08-29 14:35] VITALS: BP 107/65; PULSE 82; RESP 19; TEMP 97.9
[2020-08-29] MEDS ORDERED: [UNRECOGNIZED DRUG - OTHER] TOPICAL SCH (16:19)
[2020-08-30] MEDS ORDERED: THYROID, PORK 30 MG TAB PO SCH (09:00)
== END 2020-08-29 13:45 | DRG 494 ==
LOC: 4SSUR 08-25 11:27
PROVIDERS: ADMIT Podiatrist; ATTEND Podiatrist
PROC: 0QSJ04Z Reposition Right Fibula with Internal Fixation Device, Open Approach (ICD-10-PCS; 2020-08-26)
PROC: 0QSG04Z Reposition Right Tibia with Internal Fixation Device, Open Approach (ICD-10-PCS; principal; 2020-08-26 13:10)
DX: S82.841A Displaced bimalleolar fracture of right lower leg, initial encounter for closed fracture (principal); E78.5 Hyperlipidemia, unspecified; E03.9 Hypothyroidism, unspecified; N18.30 Chronic kidney disease, stage 3 unspecified; R21 Rash and other nonspecific skin eruption; Z87.891 Personal history of nicotine dependence; F40.240 Claustrophobia; Z20.822 Contact with and (suspected) exposure to COVID-19; H40.20X0 Unspecified primary angle-closure glaucoma, stage unspecified; W10.9XXA Fall (on) (from) unspecified stairs and steps, initial encounter; M85.80 Other specified disorders of bone density and structure, unspecified site; F41.9 Anxiety disorder, unspecified; Z79.899 Other long term (current) drug therapy; Z79.82 Long term (current) use of aspirin; Z85.820 Personal history of malignant melanoma of skin; Z90.710 Acquired absence of both cervix and uterus; F32.9 Major depressive disorder, single episode, unspecified
CPT/HCPCS: 64445; 64447; 76942; 80048; 83735; 85025; 87635

== ENCOUNTER → 2020-11-23 | Outpatient (CLI) | payer MEDICARE, BC ==
--- NOTE | 2020-11-23 09:13 | US ---
EXAMINATION TYPE: US thyroid st tissue head/neck DATE OF EXAM: 11/23/2020 COMPARISON: US dated 02/29/2020 CLINICAL HISTORY: E04.1 Thyroid nodule,R59.0 enlarged cervical node. GLAND SIZE: Right Lobe: 3.7 x 1.0 x 1.1 cm Overall Parenchyma: homogenous Left Lobe: 3.8 x 0.8 x 1.3 cm Overall Parenchyma: homogeneous Isthmus Thickness: 0.3 cm NODULES RIGHT: # of nodules measured on right: 0 LEFT: # of nodules measured on left: 1 1. 0.7 X 0.5 x 0.5 cm, lower mid, solid or almost completely solid, isoechoic nodule, which is wide r than tall, with smooth margins, without echogenic foci. TR 4 Prior size: 0.6 x 0.3 x 0.5 cm ISTHMUS: # of nodules measured in the isthmus: 0 Bilateral neck scanned, no evidence of lymphadenopathy. Vague nodule left lobe. Prior lymph node inferior to gland not appreciated on today's exam. IMPRESSION: Moderately suspicious nodule left lobe thyroid. 2017 ACR TI-RADS LEVEL: TR-RADS 4 - Moderately Suspicious: Follow if > 1 cm, FNA if > 1.5 cm *Highest TI-RADS level nodule reported
== END | disposition home or self-care (01) ==
LOC: RADUSWWP 08:15
PROVIDERS: ATTEND Otolaryngology
DX: E04.1 Nontoxic single thyroid nodule (principal)
CPT/HCPCS: 76536

== ENCOUNTER → 2021-08-22 | Outpatient (CLI) | payer MEDICARE, BC ==
--- NOTE | 2021-08-22 15:53 | US ---
EXAMINATION TYPE: US thyroid st tissue head/neck DATE OF EXAM: 08/22/2021 COMPARISON: 11/23/2020 CLINICAL HISTORY: 70-year-old female E04.1 THYROID NODULE. TECHNIQUE: Multiple sonographic images of the thyroid gland are obtained. FINDINGS: GLAND SIZE: Right Lobe: 4.5 x 1.1 x 0.9 cm Overall Parenchyma: homogenous Left Lobe: 4.2 x 1.3 x 0.8 cm Overall Parenchyma: homogeneous Isthmus Thickness: 0.2 cm NODULES RIGHT: # of nodules measured on right: 0 LEFT: # of nodules measured on left: 1 1. 0.5 X 0.5 x 0.3 cm, lower mid, solid or almost completely solid, hypoechoic nodule, which is wid er than tall, with smooth margins, without echogenic foci. Prior size: 0.7 x 0.5 x 0.5 cm ISTHMUS: # of nodules measured in the isthmus: 0 Bilateral neck scanned, no evidence of lymphadenopathy. IMPRESSION: Solitary 5 mm TR4 nodule in the left lobe is stable to slightly smaller from previous
== END | disposition home or self-care (01) ==
LOC: RADUSWWP 12:04
PROVIDERS: ATTEND Otolaryngology
DX: E04.1 Nontoxic single thyroid nodule (principal)
CPT/HCPCS: 76536

== ENCOUNTER → 2022-08-27 | Outpatient (CLI) | payer BC, MEDICARE ==
--- NOTE | 2022-08-27 11:23 | US ---
EXAMINATION TYPE: US thyroid st tissue head/neck DATE OF EXAM: 08/27/2022 COMPARISON: US CLINICAL INDICATION: Female, 71 years old with history of E04.1 Thyroid nodule; F/U nodule GLAND SIZE: Right Lobe: 4.6 x 1.1 x 1.3 cm Overall Parenchyma: homogenous Left Lobe: 3.9 x 0.8 x 1.3 cm Overall Parenchyma: homogeneous Isthmus Thickness: 0.2 cm NODULES RIGHT: # of nodules measured on right: 0 LEFT: # of nodules measured on left: 1 1. 0.6 X 0.6 x 0.3 cm, lower, solid or almost completely solid, hypoechoic nodule, which is wider t carter tall, with smooth margins, without echogenic foci. Prior size: 0.5 x 0.5 x 0.3 cm ISTHMUS: # of nodules measured in the isthmus: 0 Bilateral neck scanned, no evidence of lymphadenopathy. Stable sub-centimeter nodule left lobe. IMPRESSION: Subcentimeter nodule left thyroid lobe.
== END | disposition home or self-care (01) ==
LOC: RADUSWWP 09:59
PROVIDERS: ATTEND Otolaryngology
DX: E04.1 Nontoxic single thyroid nodule (principal)
CPT/HCPCS: 76536

== ENCOUNTER → 2023-08-19 | Outpatient (CLI) | payer MEDICARE, BC ==
--- NOTE | 2023-08-19 12:34 | US ---
EXAMINATION TYPE: US thyroid st tissue head/neck DATE OF EXAM: 08/19/2023 COMPARISON: 08/27/2022 CLINICAL INDICATION: Female, 72 years old with history of E04.1 NONTOXIC SINGLE THYROID NODULE; f/u e xam GLAND SIZE: Right Lobe: 3.7 x 0.9 x 1.2cm Overall Parenchyma: homogeneous Left Lobe: 4.2 x 1.2 x 0.9cm Overall Parenchyma: homogeneous Isthmus Thickness: 0.3 cm NODULES RIGHT: # of nodules measured on right: 0 LEFT: # of nodules measured on left: 1 1. 0.8 X 0.5 x 0.7cm, lower, Prior size: 0.6 x 0.3 x 0.6 cm TIRADS Score: 4 TIRADS Category 4: Composition: Solid or almost completely solid (2 points). Echogenicity: Hypoechoic (2 points). Shape: Wider than tall (0 points). Margin: Smooth (0 points). Echogenic foci: None or large comet-tail artifacts (0 points) Recommendation: If >1.5cm: FNA; If >1cm: Follow up at 1,2, 3,5 years ISTHMUS: # of nodules measured in the isthmus: 0 Bilateral neck scanned, no evidence of lymphadenopathy. IMPRESSION: Left thyroid nodule that meet criteria for follow-up.
== END | disposition home or self-care (01) ==
LOC: RADUSWWP 10:27
PROVIDERS: ATTEND Otolaryngology
DX: E04.1 Nontoxic single thyroid nodule (principal)
CPT/HCPCS: 76536

== ENCOUNTER → 2024-08-17 | Outpatient (CLI) | payer MEDICARE, BC ==
--- NOTE | 2024-08-17 11:44 | US ---
EXAMINATION TYPE: US thyroid st tissue head/neck DATE OF EXAM: 08/17/2024 COMPARISON: 08/19/2023 CLINICAL INDICATION: Female, 73 years old with history of E04.1 NONTOXIC SINGLE THYROID NODULE; F/U TECHNIQUE: Grayscale and color Doppler imaging of the thyroid gland. FINDINGS: GLAND SIZE: Right Lobe: 4.0X0.7X1.2 cm Overall Parenchyma: homogeneous Left Lobe: 3.7X0.6X1.3 cm Overall Parenchyma: heterogeneous Isthmus Thickness: 0.2 cm NODULES RIGHT: # of nodules measured on right: 0 LEFT: # of nodules measured on left: 2 1. 0.7 X 0.6 x 0.8 cm, lower mid, mixed cystic and solid, hypoechoic nodule, which is wider than ta ll, with smooth margins, without echogenic foci. Prior size: 0.8 x 0.5 x 0.7 cm 2. 0.5 X 0.3 x 0.5 cm, lower mid, mixed cystic and solid, hypoechoic nodule, which is wider than t all, with smooth margins, without echogenic foci. ISTHMUS: # of nodules measured in the isthmus: 0 Bilateral neck scanned, no evidence of lymphadenopathy. IMPRESSION: Stable subcentimeter nodularity. Highest TI-RADS level nodule reported: 2017 ACR TI-RADS LEVEL: TI-RADS assessment score and recommendation for follow-up based on appropriate scoring and treatment protocols. TR1 Benign No FNA TR2 Not suspicious No FNA TR3: If nodule size is ? 2.5 cm, FNA is recommended. If nodule size is ? 1.5 cm, follow-up imaging at 1, 3, and 5 years is recommended. TR4: If nodule size is ? 1.5 cm, FNA is recommended. If nodule size is ? 1.0 cm, follow-up imaging at 1, 2, 3, and 5 years is recommended. TR5: If nodule size is ? 1.0 cm, FNA is recommended. If nodule size is ? 0.5 cm, annual follow-up for up to 5 years is recommended. TR 1 thyroid nodules have a 0.3 % risk of malignancy. TR 2 thyroid nodules have a 1.5 % risk of malignancy. TR 3 thyroid nodules have a 4.8 % risk of malignancy. TR 4 thyroid nodules have a 9.1 % risk of malignancy. TR 5 thyroid nodules have a 35 % risk of malignancy. [email or web address], , 08/17/2024 11:41 AM
== END | disposition home or self-care (01) ==
LOC: RADUSWWP 10:43
PROVIDERS: ATTEND Family Medicine
DX: E04.1 Nontoxic single thyroid nodule (principal)
CPT/HCPCS: 76536